=== PATIENT | female | born 1950 | race Two or more races ===

== ENCOUNTER 2025-02-11 11:27 | Inpatient (IN) | payer OTHER ==
[~2025-02-11] VITALS: Ht 154.9 cm; Wt 45.2 kg
--- NOTE | 2025-02-11 11:49 | ED.PDOC ---
HPI Comments 74 y/o F, CHANELLE presents to the ED for CC of possible STEMI. Per EMS, patient is coming from [facility] for possible Stemi due to elevated troponin levels. EMS relays, family reports failure to thrive x5days. Patient's baseline is A&Ox1 no other symptoms or modifying factors obtainable at this time. 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 Family History Family History: Unknown Social History Smoker: Unknown Alcohol: Unknown Drugs: Unknown Lives In: Home Unable to Obtain due to: Medical Urgency Physical Exam General Appearance: Moderate Distress HEENT: Normal ENT Inspection, Pharynx Normal, TMs Normal Neck: Full Range of Motion, Non-Tender, Normal, Normal Inspection Respiratory: Chest Non-Tender, Lungs Clear, No Accessory Muscle Use, No Respiratory Distress, Normal Breath Sounds Cardiovascular: No Edema, No JVD, No Murmur, No Gallop, Normal Peripheral Pulses, Regular Rate/Rhythm Breast Exam: Deferred Gastrointestinal: No Organomegaly, Non Tender, No Pulsatile Mass, Normal Bowel Sounds, Soft Genitalia: Deferred Pelvic: Deferred Rectal: Deferred Extremities: No pedal edema Musculoskeletal : Apperance: Normal Neurologic: Disoriented Cerebellar Function: NOT DONE Reflexes: NOT DONE Skin: Dry, Normal Color, Warm Peripheral Pulses: 3+ Radial (R), 3+ Radial (L) Lymphatic: No Adenopathy Was a procedure done? Was a procedure done?: No CP Differential Dx Differential Diagnosis: A-fib, A-Flutter, Angina, Anxiety / Panic Attack, Atrial Dysrhythmia, Electrolyte Disorder Differential Diagnosis: Other (NSTEMI) Differential Diagnosis: Other X-Ray, Labs, Meds, VS Vital Signs Date Time Temp Pulse Resp B/P (MAP) Pulse Ox O2 Delivery O2 Flow Rate FiO2 02/11/25 11:58 80 02/11/25 11:40 95.3 74 18 154/54 (87) 100 95.3 02/11/25 11:33 78 Lab Test 02/11/25 13:35 02/11/25 13:18 02/11/25 11:53 Range/Units Troponin I High Sensitivity Pending > 51413 *H </=34 ng/L Urine Color Light-orange Yellow Urine Clarity Clear Clear Urine pH 6.0 5.0-9.0 Urine Specific [place] > 1.035 H 1.001-1.035 Urine Protein 2+ H Negative Urine Ketones Negative Negative Urine Blood 3+ H Negative /uL Urine Nitrite Negative Negative Urine Bilirubin Negative Negative Urine Urobilinogen Normal Negative mg/dL Urine Leukocyte Esterase Negative Negative /uL Urine RBC 545 0 - 4 /hpf Urine Microscopic WBC 105 H 0-5 /HPF Urine Squamous Epithelial Cells Few <5 /hpf Urine Bacteria None seen None Seen /hpf Urine Glucose Normal Normal mg/dL White Blood Count 4.0 L 4.4-10.8 10^3/uL Red Blood Count 3.91 L 4.0-5.20 10^6/uL Hemoglobin 10.8 L 12.2-16.2 g/dL Hematocrit 33.1 L 36.0-46.0 % Mean Corpuscular Volume 84.7 80.0-100.0 fL Mean Corpuscular Hemoglobin 27.6 L 28.0-32.0 pg Mean Corpuscular Hemoglobin Concent 32.6 32.0-36.0 g/dL Red Cell Distribution Width 15.5 H 11.8-14.3 % Platelet Count 269 140-450 10^3/uL Mean Platelet Volume 7.9 6.9-10.8 fL Neutrophils (%) (Auto) 74.9 37.0-80.0 % Lymphocytes (%) (Auto) 10.7 10.0-50.0 % Monocytes (%) (Auto) 13.6 H 0.0-12.0 % Eosinophils (%) (Auto) 0.4 0.0-7.0 % Basophils (%) (Auto) 0.4 0.0-2.0 % Neutrophils # (Auto) 3.0 1.6-8.6 10 ^3/uL Lymphocytes # (Auto) 0.4 0.4-5.4 10 ^3/uL Monocytes # (Auto) 0.5 0-1.3 10 ^3/uL Eosinophils # (Auto) 0 0-0.8 10 ^3/uL Basophils # (Auto) 0 0-0.2 10 ^3/uL Nucleated Red Blood Cells 0.1 % Sodium Level 140 136-145 mmol/L Potassium Level 3.5 3.5-5.1 mmol/L Chloride Level 101 98-107 mmol/L Carbon Dioxide Level 33 H 20-31 mmol/L Anion Gap 6 5-15 Blood Urea Nitrogen 18 9-23 mg/dL Creatinine 0.73 0.550-1.02 mg/dL Glomerular Filtration Rate Calc 85 >90 mL/min BUN/Creatinine Ratio 24.7 H 10.0-20.0 Serum Glucose 114 H 74-106 mg/dL Calcium Level 7.9 L 8.7-10.4 mg/dL [place] [id number] Ph: [phone] DIAGNOSTIC IMAGING Diagnostic Imaging Report : [id number] Signed PATIENT: JIM AMES ACCT: [id number] UNIT: [id number] : 1950 LOC: ER ROOM / BED: / AGE / SEX: 74 / F ADM STATUS: REG ER SERVICE 1138 ORDERING PHYSICIAN: CHARISMA JARAMILLO MD PROCEDURE(s): CXRP - CHEST PORTABLE REASON: sob ORDER NUMBER(s): [id number], ACCESSION NUMBER(s): [id number] CHEST RADIOGRAPH Indication: sob Technique: Single frontal view of the chest was obtained COMPARISON: None FINDINGS: Lines and Tubes: None Lungs: Congestion Pleura: Moderate right pleural effusion No pneumothorax. Cardiomediastinal contours: Unremarkable Bones: Unremarkable IMPRESSION: Moderate right pleural effusion. ATED BY: ELVIN RUSSELL MD DICTATED DATE/TIME: 02/11/251200 SIGNED BY: ELVIN RUSSELL MD SIGNED DATE/TIME: 02/11/251200 CC: Patient disoriented. Came in from another hospital because elevated troponin. Unable to get a good history from the patient. Spoke with the physician from [facility]. Spoke with hospitalist. She did have a increase in troponin. Spoke to the family. Family did not want any intervention. Was given heparin in the field. Was given Lovenox in the ER. EKG does not show any acute changes. Spoke with director religious education. Reviewed her visit. Explained to the family. Continue cardiac monitoring. Time of 1ST Reevaluation: 12:00 Reevaluation 1ST: Unchanged Patient Education/Counseling: Diagnosis, Treatment Family Education/Counseling: No Family Present Departure 1 Departure Time of Disposition: 13:20 Impression: Primary Impression: NSTEMI (non-ST elevated myocardial infarction) Disposition: ADMITTED INPATIENT Admit to: Med Surg Condition: Guarded Critical Care Note Critical Care Time?: Yes (90 min-critical care time only) Critical care comment: Cardiac markers continues to be elevated. Stability Stability form required: No Heart Score Heart Score: Heart Score Response (Comments) Value History Moderate Suspicious 1 EKG N/A 0 Age >65 2 Risk Factors 1 or 2 risk factors 1 Troponin >3 x's Normal limit 2 Total 6 I personally scribed for CHARISMA JARAMILLO MD ([email or web address]) on 02/11/25 at 11:49. Electronically submitted by Urvashi Jaffe ([email or web address]). I personally scribed for CHARISMA JARAMILLO MD ([email or web address]) on 02/11/25 at 11:51. Electronically submitted by Urvashi Jaffe ([email or web address]). I personally scribed for CHARISMA JARAMILLO MD ([email or web address]) on 02/11/25 at 12:00. Electronically submitted by Urvashi Jaffe ([email or web address]). I personally scribed for CHARISMA JARAMILLO MD ([email or web address]) on 02/11/25 at 13:58. Electronically submitted by Urvashi Jaffe ([email or web address]). CHARISMA JARAMILLO MD Feb 11, 2025 11:49
[2025-02-11] MEDS: ANGIOMAX 250 MG VIAL IV ONE (11:54)
[2025-02-11] MEDS: fentaNYL CITRATE 100 MCG/2 ML VL ONE (11:55)
[2025-02-11] MEDS: SODIUM CHL 0.9% 50 ML ONE (11:55)
[2025-02-11] MEDS: MIDAZOLAM HCL 2MG/2ML 2ml VIAL (1mg/ml) ONE (11:55)
[2025-02-11] MEDS: LIDOCAINE 2%HCL (LOCAL ANESTH.) INJ 20ML MDV ONE (11:55)
--- NOTE | 2025-02-11 12:04 | DVH ---
CHEST RADIOGRAPH Indication: sob Technique: Single frontal view of the chest was obtained COMPARISON: None FINDINGS: Lines and Tubes: None Lungs: Congestion Pleura: Moderate right pleural effusion No pneumothorax. Cardiomediastinal contours: Unremarkable Bones: Unremarkable IMPRESSION: Moderate right pleural effusion.
[2025-02-11] MEDS: SODIUM CHLORIDE 0.9% 1,000 ML IV ONE (12:15)
[2025-02-11 12:16] LABS: Basophils # (auto) 0 10 ^3/uL (0-0.2); Basophils % (auto) 0.4 % (0.0-2.0); Eosinophils # (auto) 0 10 ^3/uL (0-0.8); Eosinophils % (auto) 0.4 % (0.0-7.0); Hematocrit 33.1 % (36.0-46.0); Hemoglobin 10.8 g/dL (12.2-16.2); Lymphocytes # (auto) 0.4 10 ^3/uL (0.4-5.4); Lymphocytes % (auto) 10.7 % (10.0-50.0); Mean Corpuscular Hemoglobin 27.6 pg (28.0-32.0); Mean Corpuscular Hgb Conc. 32.6 g/dL (32.0-36.0); Mean Corpuscular Volume 84.7 fL (80.0-100.0); Monocytes # (auto) 0.5 10 ^3/uL (0-1.3); Monocytes % (auto) 13.6 % (0.0-12.0); Neutrophils % (auto) 74.9 % (37.0-80.0); Nucleated Red Blood Cells % 0.1 %; Platelet Count (auto) 269 10^3/uL (140-450); Red Blood Cells 3.91 10^6/uL (4.0-5.20); Red Cell Distribution Width 15.5 % (11.8-14.3)
[2025-02-11 12:21] LABS: Anion Gap 6 (5-15); Chloride 101 mmol/L (98-107); Sodium 140 mmol/L (136-145)
[2025-02-11 12:27] LABS: BUN/Creatinine Ratio 24.7 (10.0-20.0); Blood Urea Nitrogen 18 mg/dL (9-23)
[2025-02-11 12:33] LABS: Calcium 7.9 mg/dL (8.7-10.4); Carbon Dioxide 33 mmol/L (20-31); Glucose 114 mg/dL (74-106); Potassium 3.5 mmol/L (3.5-5.1)
[2025-02-11 13:00] VITALS: PULSE 67; RESP 22; O2SAT 100
[2025-02-11 13:19] LABS: Urine Bacteria None Seen /hpf (None Seen)
[2025-02-11 13:42] LABS: Urine Blood 3+ /uL (Negative); Urine Clarity Clear (Clear); Urine Color Light-Orange (Yellow); Urine Protein, UAD 2+ (Negative); Urine Squamous Epithelial Cell FEW /hpf (<5); Urine Urobilinogen Normal (Negative); Urine WBC 105 /HPF (0-5)
[2025-02-11 13:46] LABS: Urine Specific Gravity > 1.035 (1.001-1.035)
--- NOTE | 2025-02-11 15:03 | DVHINCON2 ---
Date Seen: Feb 11, 2025 Referring Physician MD Junior Reason for Consultation NSTEMI History of Present Illness This is a 74-year-old female transient for [facility] to our facility in the setting of trending troponin levels. At time of assessment the patient was found somewhat ALOC with son at bedside. Per records, the patient initially presented with complaints of some confusion associated with decreased appetite. Per son and daughter over the phone, the patient has lost approximately 20 lb, has lost some teeth, and has being found with some depression during the past couple of months. There were no complaints of chest pain, palpitations, shortness of breath, diaphoresis, or syncopal events. Twelve lead electrocardiograms from the aforementioned facility in our facility half revealed a sinus rhythm with nonspecific ST segment changes to inferolateral leads. Initial troponin level is >25,000 ng/L. Son and daughter are adamant about the patient undergoing any invasive cardiac procedures including PCIs. Of note, CT chest/abdomen/pelvis from [facility] revealed numerous sclerotic lesions in the osseous structures of the chest/abdomen/pelvis consistent with metastatic disease, cardiomegaly with moderate pericardial effusion, and possible malted lymphadenopathy. Significant medical history includes hypertension, dyslipidemia, anemia, and recent history of tobacco use quit two months ago. Past Medical History Past medical history reviewed. No other significant than mentioned above. Past Surgical History Past surgical history reviewed. No other significant than mentioned above. Family History Family history reviewed. Social History Denies the use of illicit drugs, alcohol, or tobacco use. Quit smoking two months ago. Allergies: Coded Allergies: Aspirin (Verified Allergy, Unknown, 02/11/25) Penicillins (Verified Allergy, Unknown, 02/11/25) Home Meds Home medications reviewed. Review of Systems Constitutional: Poor appetite Ears, Nose, & Throat: No symptom reported Eyes: No symptom reported Neurological: ALOC Pulmonary/Respiratory: No symptom reported Cardiovascular: No symptom reported Gastrointestinal: No symptom reported Genitourinary: No symptom reported Musculoskeletal: No symptom reported Skin: No symptom reported Psychiatric: No symptom reported Endocrine: No symptom reported Hemotologic/Lymphatic: No symptom reported Vital Signs Vital Signs Date Time Temp Pulse Resp B/P (MAP) Pulse Ox O2 Delivery O2 Flow Rate FiO2 02/11/25 12:00 71 02/11/25 11:40 95.3 18 154/54 (87) 100 95.3 Physical Exam General Appearance: ALOC. Cachectic. Appears ill Head Exam: Normal inspection Neck Exam: Normal inspection. Non-tender. Normal alignment Pulmonary/Respiratory: Chest non-tender. Diminished bilateral breath sounds Cardiovascular/Chest: Regular rate and rhythm. S1, S2. Sinus rhythm with nonspecific inferolateral ST changes. No murmurs. No JVD. Peripheral Pulses: 2+ Radial (R). 2+ Radial (L). 2+ Pedal (R). 2+ Pedal (L) Abdominal Exam: Normal bowel sounds Ankle Exam: Positive ankle pitting edema, 2+ Lower extremities: Negative lower extremity edema Neuro/Mental Status: A&O x1. Incoherent, confused Thoughts/Psych: Unable to assess at this time Appearance: In no acute distress Skin Exam: Normal inspection. Pale color. Warm. Dry Labs/Diagnostic Data Labs Test 02/11/25 13:35 02/11/25 13:18 02/11/25 11:53 Range/Units Troponin I High Sensitivity > 63216 *H </=34 ng/L Urine Color Light-orange Yellow Urine Clarity Clear Clear Urine pH 6.0 5.0-9.0 Urine Specific [place] > 1.035 H 1.001-1.035 Urine Protein 2+ H Negative Urine Ketones Negative Negative Urine Blood 3+ H Negative /uL Urine Nitrite Negative Negative Urine Bilirubin Negative Negative Urine Urobilinogen Normal Negative mg/dL Urine Leukocyte Esterase Negative Negative /uL Urine RBC 545 0 - 4 /hpf Urine Microscopic WBC 105 H 0-5 /HPF Urine Squamous Epithelial Cells Few <5 /hpf Urine Bacteria None seen None Seen /hpf Urine Glucose Normal Normal mg/dL White Blood Count 4.0 L 4.4-10.8 10^3/uL Red Blood Count 3.91 L 4.0-5.20 10^6/uL Hemoglobin 10.8 L 12.2-16.2 g/dL Hematocrit 33.1 L 36.0-46.0 % Mean Corpuscular Volume 84.7 80.0-100.0 fL Mean Corpuscular Hemoglobin 27.6 L 28.0-32.0 pg Mean Corpuscular Hemoglobin Concent 32.6 32.0-36.0 g/dL Red Cell Distribution Width 15.5 H 11.8-14.3 % Platelet Count 269 140-450 10^3/uL Mean Platelet Volume 7.9 6.9-10.8 fL Neutrophils (%) (Auto) 74.9 37.0-80.0 % Lymphocytes (%) (Auto) 10.7 10.0-50.0 % Monocytes (%) (Auto) 13.6 H 0.0-12.0 % Eosinophils (%) (Auto) 0.4 0.0-7.0 % Basophils (%) (Auto) 0.4 0.0-2.0 % Neutrophils # (Auto) 3.0 1.6-8.6 10 ^3/uL Lymphocytes # (Auto) 0.4 0.4-5.4 10 ^3/uL Monocytes # (Auto) 0.5 0-1.3 10 ^3/uL Eosinophils # (Auto) 0 0-0.8 10 ^3/uL Basophils # (Auto) 0 0-0.2 10 ^3/uL Nucleated Red Blood Cells 0.1 % Sodium Level 140 136-145 mmol/L Potassium Level 3.5 3.5-5.1 mmol/L Chloride Level 101 98-107 mmol/L Carbon Dioxide Level 33 H 20-31 mmol/L Anion Gap 6 5-15 Blood Urea Nitrogen 18 9-23 mg/dL Creatinine 0.73 0.550-1.02 mg/dL Glomerular Filtration Rate Calc 85 >90 mL/min BUN/Creatinine Ratio 24.7 H 10.0-20.0 Serum Glucose 114 H 74-106 mg/dL Calcium Level 7.9 L 8.7-10.4 mg/dL Assessment Non ST-elevation myocardial infarction Osseous metastatic disease, ?primary source Recent weight loss >20 lb in two months Anemia in chronic disease Hypertension Cachexia Plan/Recommendation (Dr. Pierce) Conversation held with son and eldest daughter/next of kin (Ana Laura Rutledge) over the phone. They are adamant the patient undergoing any invasive cardiac procedu res at this time. Given findings of metastatic osseous disease we recommend conservative management and further work-up to establish primary source of malignancy. We recommend hospice care evaluation. No further recommendations at this time. Kindly call if in need to re-consult. Thank you for allowing us to participate in this patient's care. Critical care time: 45 min. This medical document was created using an electronic medical record system with voice recognition software and [employer] dictation system. Although this document has been carefully reviewed, there might still be some phonetic and typographical errors. Occasional wrong- word or ``sound-alike substitutions may have occurred due to the inherent limitations of voice recognition software. These areas are purely typographical due to imperfections of the software programs and do not reflect any compromise in the patient's medical care. Please read the chart carefully and recognize, using context, where these substitutions have occurred. Plan discussed with: Patient, Daughter, Son, Other NYHA Physical activity limitations: NA Date of Service: Feb 11, 2025 Billing Provider: RYAN DE ANDA Cardiology Common Codes: 84171-LVYAIVEM CARE 30-74 MIN RYAN DE ANDA Feb 11, 2025 15:03
[2025-02-11] MEDS ORDERED: MORPHINE SULFATE INJ 2 MG/ml SYRG IV PRN (15:30)
[2025-02-11] MEDS ORDERED: NITROGLYCERIN 0.4 MG SL TAB SL PRN (15:30)
--- NOTE | 2025-02-11 15:43 | DVHHP2 ---
History of Present Illness Reason for Visit: Elevated troponin History of Present Illness This is a 74-year-old female transferred from [facility] to our facility in the setting of elevated troponin levels for nonemergent cardiac evaluation and possible coronary angiogram. At time of assessment the patient was found somewhat ALOC with son at bedside. Per records, the patient initially presented with complaints of some confusion associated with decreased appetite. Per son and daughter over the phone, the patient has lost approximately 20 lb, has lost some teeth, and has being found with some depression during the past couple of months. There were no complaints of chest pain, palpitations, shortness of breath, diaphoresis, or syncopal events. Twelve lead electrocardiograms from the aforementioned facility in our facility half revealed a sinus rhythm with nonspecific ST segment changes to inferolateral leads. Initial troponin level is >25,000 ng/L. However after she came here she was evaluated by technical support technician and talked to DPOA her Son and daughter who dec lined patient undergoing any invasive cardiac procedures including PCIs. They wanted to keep her comfortable and treated with the medications if possible even if this causes further cardiac arrhythmia and sudden due to acute FL without any interventions. Therefore they have made her DNR with comfort care. Of note, CT chest/abdomen/pelvis from [facility] revealed numerous sclerotic lesions in the osseous structures of the chest/abdomen/pelvis consistent with metastatic disease, cardiomegaly with moderate pericardial effusion, and possible malted lymphadenopathy. Significant medical history includes hypertension, dyslipidemia, anemia, and recent history of tobacco use quit two months ago. Past Medical History hypertension, dyslipidemia, anemia, Past Surgical History: None Family History: Hypertension Smoke: Quit ALCOHOL: none Lives: with Family Review of Systems Review of Systems No complaints of chest pain or shortness for breath. Apparently home health is visiting the patient at home. No fevers chills or sweats. No headache dizziness or lightheadedness. Generalized weakness noted. Allergies: Coded Allergies: Aspirin (Verified Allergy, Unknown, 02/11/25) Penicillins (Verified Allergy, Unknown, 02/11/25) Medications Current Medications Medications Dose Ordered Sig/Cindi Route Start Time Stop Time Status Last Admin Dose Admin Nitroglycerin 0.4 mg Q5MINP PRN SL 02/11/25 15:30 UNV Morphine Sulfate 2 mg Q30M PRN IV 02/11/25 15:30 UNV Exam Vital Signs Vital Signs Date Time Temp Pulse Resp B/P (MAP) Pulse Ox O2 Delivery O2 Flow Rate FiO2 02/11/25 12:00 71 02/11/25 11:40 95.3 18 154/54 (87) 100 95.3 Exam She was alert and awake knows her name but otherwise confused and unable to give much reliable history. Her son is at bedside. Her daughter is on the phone talking to patient/brother who is at bedside. HEENT pupils equal round react to light. Oropharynx clear. Neck supple no JVD. Heart regular rate and rhythm sinus tachycardia S1 plus S2. No audible murmurs. Lungs fair air movement with a degraded breath sounds in the bases. No wheezing noted. Chest tube will expansion. Abdomen is soft nontender nondistended positive bowel sounds nondistended. Extremities no edema positive pulses. Neurologically no focal deficits except for altered mentation. Labs/Xrays Labs Test 02/11/25 13:35 02/11/25 13:18 02/11/25 11:53 Range/Units Troponin I High Sensitivity > 10276 *H </=34 ng/L Urine Color Light-orange Yellow Urine Clarity Clear Clear Urine pH 6.0 5.0-9.0 Urine Specific [place] > 1.035 H 1.001-1.035 Urine Protein 2+ H Negative Urine Ketones Negative Negative Urine Blood 3+ H Negative /uL Urine Nitrite Negative Negative Urine Bilirubin Negative Negative Urine Urobilinogen Normal Negative mg/dL Urine Leukocyte Esterase Negative Negative /uL Urine RBC 545 0 - 4 /hpf Urine Microscopic WBC 105 H 0-5 /HPF Urine Squamous Epithelial Cells Few <5 /hpf Urine Bacteria None seen None Seen /hpf Urine Glucose Normal Normal mg/dL White Blood Count 4.0 L 4.4-10.8 10^3/uL Red Blood Count 3.91 L 4.0-5.20 10^6/uL Hemoglobin 10.8 L 12.2-16.2 g/dL Hematocrit 33.1 L 36.0-46.0 % Mean Corpuscular Volume 84.7 80.0-100.0 fL Mean Corpuscular Hemoglobin 27.6 L 28.0-32.0 pg Mean Corpuscular Hemoglobin Concent 32.6 32.0-36.0 g/dL Red Cell Distribution Width 15.5 H 11.8-14.3 % Platelet Count 269 140-450 10^3/uL Mean Platelet Volume 7.9 6.9-10.8 fL Neutrophils (%) (Auto) 74.9 37.0-80.0 % Lymphocytes (%) (Auto) 10.7 10.0-50.0 % Monocytes (%) (Auto) 13.6 H 0.0-12.0 % Eosinophils (%) (Auto) 0.4 0.0-7.0 % Basophils (%) (Auto) 0.4 0.0-2.0 % Neutrophils # (Auto) 3.0 1.6-8.6 10 ^3/uL Lymphocytes # (Auto) 0.4 0.4-5.4 10 ^3/uL Monocytes # (Auto) 0.5 0-1.3 10 ^3/uL Eosinophils # (Auto) 0 0-0.8 10 ^3/uL Basophils # (Auto) 0 0-0.2 10 ^3/uL Nucleated Red Blood Cells 0.1 % Sodium Level 140 136-145 mmol/L Potassium Level 3.5 3.5-5.1 mmol/L Chloride Level 101 98-107 mmol/L Carbon Dioxide Level 33 H 20-31 mmol/L Anion Gap 6 5-15 Blood Urea Nitrogen 18 9-23 mg/dL Creatinine 0.73 0.550-1.02 mg/dL Glomerular Filtration Rate Calc 85 >90 mL/min BUN/Creatinine Ratio 24.7 H 10.0-20.0 Serum Glucose 114 H 74-106 mg/dL Calcium Level 7.9 L 8.7-10.4 mg/dL Assessment/Plan Assessment/Plan Acute non ST elevation FL Metabolic encephalopathy Hypertension Pleural effusions CT of the abdomen and pelvis done at [facility] shows Sclerotic multiple lesions in her pelvis and spine suspicious for underlying metastatic cancer Given the patient's DPOA/daughter and son declined any aggressive interventions we will admit her to telemetry floor with a medical management. I have talked to the daughter over the phone along with the son at bedside at length regarding her condition and diagnosis and poor prognosis with the risk of cardiac arrhythmia and sudden cardiac given her non ST elevation FL. Apparently patient did not want any aggressive interventions including coronary angiogram even if it means sudden cardiac . Patient's daughter per patient's request wants to keep her comfortable with non aggressive medical management. Also discussed with her about CT of the abdomen and pelvis findings of possible metastatic cancer. Given patient's weight loss with a history of smoking it is felt this could be stage IV cancer and would require bone biopsy to further confirm the diagnosis. However daughter again declined any aggressive interventions including does not want any biopsy to confirm the cancer diagnosis. Given the patient's wishes as well as DPA daughter's wishes we will keep her comfortable and start her on clear liquid diet and medical management with antiplatelet therapy and statin. Lovenox for non ST elevation FL treatme nt. Morphine for pain and Zofran for nausea. Otherwise we will make her DNR given their wishes. I will have social Service consultation for hospice evaluation. I have discussed comfort care with the hospice as well with a daughter and the son and they verbalized understanding of her condition and goals of hospice care and are interested in talking to hospice services. Also discussed with the nurse regarding care plan at bedside. Overall prognosis remains very poor with a guarded condition. Family is fully aware of this and agree with the current care plan as outlined. Plan discussed with: Daughter, Son My Orders Orders - JORGE RODRÍGUEZ MD Procedure Category Date Status Time Admit ADMIT 02/11/25 Transmitted 15:24 Clear Liq Diet DIET 02/11/25 Transmitted Dinner Troponin-I Hs LAB 02/11/25 Logged 15:24 Refer To Hospice [facility] 02/11/25 In Process 15:24 * [place] CONS 02/11/25 Transmitted Consult Nitroglycerin PHA 02/11/25 Logged Sublingual (Ntrostat 15:30 Morphine Sulfate PHA 02/11/25 Logged Injection 15:30 Stat Ekg For Chest [facility] 02/11/25 In Process Pain 15:24 Notify Of Changes [facility] 02/11/25 In Process From Base 15:24 Metal Engineering Process Worker For [facility] 02/11/25 In Process 24 Hours 15:24 Emergency Dysrhythmia [facility] 02/11/25 In Process Protocol 15:24 Rhythm Strips Once [facility] 02/11/25 In Process Every Shift 15:24 Oxygen By Nasal RT 02/11/25 Transmitted Cannula 15:24 Troponin-I Hs LAB 02/11/25 Logged 18:24 * Swallow Request ST 02/11/25 Transmitted 15:24 Speech Pathologist [facility] 02/11/25 In Process Ale: Iwona 15:24 Troponin-I Hs LAB 02/12/25 Verified 04:00 Complete Blood Count LAB 02/12/25 Verified 04:00 Comprehensive LAB 02/12/25 Verified Metabolic Panel 04:00 PTPTT LAB 02/12/25 Verified 04:00 Atorvastatin (Lipitor) PHA 02/11/25 Logged 22:00 Enoxaparin Sodium PHA 02/11/25 Logged (Lovenox) 22:00 Morphine Sulfate PHA 02/11/25 Transmitted Injection 15:30 Famotidine Injection PHA 02/12/25 Transmitted (Pepcid Injection) 10:00 Clopidogrel Bisulfate PHA 02/12/25 Transmitted (Plavix) 10:00 Code Status CODE 02/11/25 Transmitted 15:27 Electrocardigram EKG 02/12/25 Logged 04:00 DNR ANNALISE 02/11/25 In Process 15:27 Metoprolol Tartrate PHA 02/11/25 Transmitted Tablet (Lopressor Ta 22:00 JORGE RODRÍGUEZ MD Feb 11, 2025 15:43
[2025-02-11] MEDS: SULFAMETH-TRIMETH 80/16MG-ML 10 ML in D5W 5% 250 ML IV ONE (15:45)
[2025-02-11] MEDS: ENOXAPARIN SOD 40 MG/0.4 ML SYRINGE SC ONE (17:33)
--- NOTE | 2025-02-11 18:34 | ECG ---
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
[2025-02-11 20:00] VITALS: PULSE 71
[2025-02-11 21:00] VITALS: BP 100/36; PULSE 77; RESP 20; TEMP 97.6; O2SAT 96
[2025-02-11] MEDS: ATORVASTATIN 20 MG TAB PO SCH (21:04)
[2025-02-11] MEDS: METOPROLOL TARTRATE 25 MG TAB PO SCH (21:04)
[2025-02-11] MEDS: ENOXAPARIN SOD 100 MG/1 ML SYRINGE SC SCH (21:44)
[2025-02-11] MEDS: D5W/SOD CHL 0.45% 1,000 ML IV SCH (22:24)
--- NOTE | 2025-02-11 23:49 | DVHINCON2 ---
Date Seen: Feb 11, 2025 Referring Physician MD Junior Reason for Consultation NSTEMI History of Present Illness This is a 74-year-old female with a PMH of hypertension, dyslipidemia, anemia, and recent history of tobacco use quit two months ago who was transferred to [facility] from [facility] due to high trending troponin levels. At time of assessment the patient was found somewhat ALOC with her son present at bedside. Per medical records, the patient initially presented with complaints of some confusion associated with decreased appetite. Per son and daughter over the phone, the patient has lost approximately 20 lb, has lost some teeth, and has being found with some depression during the past couple of months. There were no complaints of chest pain, palpitations, shortness of breath, diaphoresis, or syncopal events. Twelve lead electrocardiograms from the aforementioned facility in our facility half revealed a sinus rhythm with nonspecific ST segment changes to inferolateral leads. Initial troponin level is >25,000 ng/L. Son and daughter are adamant about the patient not undergoing any invasive cardiac procedures including PCIs. CT chest/abdomen/pelvis from [facility] revealed numerous sclerotic lesions in the osseous structures of the chest/abdomen/pelvis consistent with metastatic disease, cardiomegaly with moderate pericardial effusion, and possible malted lymphadenopathy. Past Medical History Past medical history reviewed. No other significant than mentioned above. Past Surgical History Past surgical history reviewed. No other significant than mentioned above. Allergies: Coded Allergies: Aspirin (Verified Allergy, Unknown, 02/11/25) Penicillins (Verified Allergy, Unknown, 02/11/25) Current Medications Current Medications Medications (Trade) Dose Ordered Sig/Cindi Route PRN Reason Start Time Stop Time Status Last Admin Nitroglycerin (Ntrostat Sublingual) 0.4 mg Q5MINP PRN SL FOR CHEST PAIN 02/11/25 15:30 Morphine Sulfate 2 mg Q30M PRN IV FOR CHEST PAIN 02/11/25 15:30 Atorvastatin Calcium (Lipitor) 20 mg HS PO 02/11/25 22:00 Enoxaparin Sodium (Lovenox) 40 mg Q12HR SC 02/11/25 22:00 Morphine Sulfate 2 mg Q4HPRN PRN IV SEVERE PAIN (7-10 PAIN SCALE) 02/11/25 15:30 Famotidine (Pepcid Injection) 20 mg DAILY IV 02/12/25 10:00 Clopidogrel Bisulfate (Plavix) 75 mg DAILY PO 02/12/25 10:00 Metoprolol Tartrate (Lopressor Tablet) 12.5 mg BID PO 02/11/25 22:00 Review of Systems Constitutional: Poor appetite Ears, Nose, & Throat: No symptom reported Eyes: No symptom reported Neurological: ALOC Pulmonary/Respiratory: No symptom reported Cardiovascular: No symptom reported Gastrointestinal: No symptom reported Genitourinary: No symptom reported Musculoskeletal: No symptom reported Skin: No symptom reported Psychiatric: No symptom reported Endocrine: No symptom reported Hemotologic/Lymphatic: No symptom reported Vital Signs Vital Signs Date Time Temp Pulse Resp B/P (MAP) Pulse Ox O2 Delivery O2 Flow Rate FiO2 02/11/25 19:00 73 20 113/56 (75) 100 02/11/25 16:00 97.5 97.5 02/11/25 13:00 Nasal Cannula* 4 36 Physical Exam GENERAL: Altered, cachectic, ill appearing. LUNGS: Clear. CARDIOVASCULAR: Heart sounds are good. ABDOMEN: Soft. EXT: +2 pitting edema. Labs/Diagnostic Data Labs Test 02/11/25 18:06 02/11/25 13:18 02/11/25 11:53 Range/Units Troponin I High Sensitivity > 77478 *H </=34 ng/L Urine Color Light-orange Yellow Urine Clarity Clear Clear Urine pH 6.0 5.0-9.0 Urine Specific [place] > 1.035 H 1.001-1.035 Urine Protein 2+ H Negative Urine Ketones Negative Negative Urine Blood 3+ H Negative /uL Urine Nitrite Negative Negative Urine Bilirubin Negative Negative Urine Urobilinogen Normal Negative mg/dL Urine Leukocyte Esterase Negative Negative /uL Urine RBC 545 0 - 4 /hpf Urine Microscopic WBC 105 H 0-5 /HPF Urine Squamous Epithelial Cells Few <5 /hpf Urine Bacteria None seen None Seen /hpf Urine Glucose Normal Normal mg/dL White Blood Count 4.0 L 4.4-10.8 10^3/uL Red Blood Count 3.91 L 4.0-5.20 10^6/uL Hemoglobin 10.8 L 12.2-16.2 g/dL Hematocrit 33.1 L 36.0-46.0 % Mean Corpuscular Volume 84.7 80.0-100.0 fL Mean Corpuscular Hemoglobin 27.6 L 28.0-32.0 pg Mean Corpuscular Hemoglobin Concent 32.6 32.0-36.0 g/dL Red Cell Distribution Width 15.5 H 11.8-14.3 % Platelet Count 269 140-450 10^3/uL Mean Platelet Volume 7.9 6.9-10.8 fL Neutrophils (%) (Auto) 74.9 37.0-80.0 % Lymphocytes (%) (Auto) 10.7 10.0-50.0 % Monocytes (%) (Auto) 13.6 H 0.0-12.0 % Eosinophils (%) (Auto) 0.4 0.0-7.0 % Basophils (%) (Auto) 0.4 0.0-2.0 % Neutrophils # (Auto) 3.0 1.6-8.6 10 ^3/uL Lymphocytes # (Auto) 0.4 0.4-5.4 10 ^3/uL Monocytes # (Auto) 0.5 0-1.3 10 ^3/uL Eosinophils # (Auto) 0 0-0.8 10 ^3/uL Basophils # (Auto) 0 0-0.2 10 ^3/uL Nucleated Red Blood Cells 0.1 % Sodium Level 140 136-145 mmol/L Potassium Level 3.5 3.5-5.1 mmol/L Chloride Level 101 98-107 mmol/L Carbon Dioxide Level 33 H 20-31 mmol/L Anion Gap 6 5-15 Blood Urea Nitrogen 18 9-23 mg/dL Creatinine 0.73 0.550-1.02 mg/dL Glomerular Filtration Rate Calc 85 >90 mL/min BUN/Creatinine Ratio 24.7 H 10.0-20.0 Serum Glucose 114 H 74-106 mg/dL Calcium Level 7.9 L 8.7-10.4 mg/dL Assessment Non ST-elevation myocardial infarction. Osseous metastatic disease, ?primary source. Recent weight loss >20 lb in two months. Anemia in chronic disease. Hypertension. Cachexia. Plan/Recommendation I agree with your ongoing assessment and care of plan. Patient has been seen by Jelena Esteves NP on my behalf, her and I discussed the plan with the patient. Conversation held with son and eldest daughter/next of kin (Ana Laura Rutledge) over the phone. They are adamant the patient undergoing any invasive cardiac procedures at this time. Given findings of metastatic osseous disease we recommend conservative management and further work-up to establish primary source of malignancy. We recommend hospice care evaluation. Additional plan as per the hospital course. Plan discussed with: Other NYHA Physical activity limitations: NA Date of Service: Feb 11, 2025 Billing Provider: LEYDA GAONA MD Cardiology Common Codes: 01451-[id number] INP/OBS CARE (High), 25971-[id number] CARE 30-74 MIN LEYDA GAONA MD Feb 11, 2025 21:03
--- NOTE | 2025-02-12 07:24 | ECG ---
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
[2025-02-12 07:25] LABS: Basophils # (auto) 0 10 ^3/uL (0-0.2); Basophils % (auto) 0.5 % (0.0-2.0); Eosinophils # (auto) 0 10 ^3/uL (0-0.8); Eosinophils % (auto) 0.5 % (0.0-7.0); Hematocrit 32.8 % (36.0-46.0); Hemoglobin 10.9 g/dL (12.2-16.2); Lymphocytes # (auto) 0.5 10 ^3/uL (0.4-5.4); Lymphocytes % (auto) 14.3 % (10.0-50.0); Mean Corpuscular Hgb Conc. 33.3 g/dL (32.0-36.0); Mean Corpuscular Volume 84.1 fL (80.0-100.0); Monocytes # (auto) 0.4 10 ^3/uL (0-1.3); Monocytes % (auto) 12.6 % (0.0-12.0); Neutrophils # (auto) 2.5 10 ^3/uL (1.6-8.6); Neutrophils % (auto) 72.1 % (37.0-80.0); Platelet Count (auto) 279 10^3/uL (140-450); Red Cell Distribution Width 15.8 % (11.8-14.3); White Blood Cell 3.5 10^3/uL (4.4-10.8)
[2025-02-12 07:39] LABS: INR 1.08 (0.9-1.15); Partial Thromboplastin Time 36.4 SEC (24.5-34.5); Prothrombin Time 11.4 sec (9.3-11.8)
[2025-02-12 07:50] LABS: Alanine Aminotransferase 20 U/L (7-40); Alkaline Phosphatase 109 U/L (46-116); Anion Gap 6 (5-15); BUN/Creatinine Ratio 24.1 (10.0-20.0); Bilirubin, Total 0.5 mg/dL (0.2-1.0); Blood Urea Nitrogen 20 mg/dL (9-23); Chloride 101 mmol/L (98-107); Potassium 3.6 mmol/L (3.5-5.1); Sodium 140 mmol/L (136-145)
[2025-02-12 07:54] LABS: Aspartate Aminotransferase 189 U/L (13-40); Calcium 8.4 mg/dL (8.7-10.4); Carbon Dioxide 33 mmol/L (20-31); Glucose 116 mg/dL (74-106); Total Protein 5.7 g/dL (5.7-8.2)
[2025-02-12 08:00] VITALS: PULSE 68; PULSE 70; RESP 20; O2SAT 100
[2025-02-12 09:00] VITALS: BP 139/58; PULSE 70; RESP 23; TEMP 97.6; O2SAT 100
[2025-02-12] MEDS: FAMOTIDINE (10MG/ML) 2ML VL IV SCH (09:23)
[2025-02-12] MEDS: CLOPIDOGREL BISULFATE 75 MG TAB PO SCH (09:24)
--- NOTE | 2025-02-12 12:50 | ECG ---
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
[2025-02-12] MEDS ORDERED: LEVO250T58 PO (12:55)
[2025-02-12] MEDS ORDERED: METO25TA5 PO (12:55)
[2025-02-12] MEDS ORDERED: ATOR20TA50 PO (12:55)
[2025-02-12] MEDS ORDERED: ASPI-543 PO (12:55)
[2025-02-12 13:00] VITALS: BP 153/46; PULSE 72; RESP 21; TEMP 97.5; O2SAT 99
--- NOTE | 2025-02-12 13:18 | DVHPN2 ---
Progress Note - Dictate Date Seen: Feb 12, 2025 Medical Necessity Reason Pt with a Central, PICC or Fol: No Subjective Patient clinically stable. No complaints of chest pain but does have some shortness for breath on oxygen. Son and patient's nurse is at bedside vital signs Vital Sign Date Time Temp Pulse Resp B/P (MAP) Pulse Ox O2 Delivery O2 Flow Rate FiO2 02/12/25 10:24 73 155/42 02/12/25 09:00 97.6 23 100 97.6 02/12/25 08:00 Nasal Cannula* 4 36 Total Intake and Output 02/11/25 02/11/25 02/12/25 15:00 23:00 07:00 Intake Total 0 ml Output Total 130 ml Balance -130 ml medications Current Medications Medications Dose Ordered Sig/Cindi Route Start Time Stop Time Status Last Admin Dose Admin Nitroglycerin 0.4 mg Q5MINP PRN SL 02/11/25 15:30 Morphine Sulfate 2 mg Q30M PRN IV 02/11/25 15:30 Atorvastatin Calcium 20 mg HS PO 02/11/25 22:00 Enoxaparin Sodium 40 mg Q12HR SC 02/11/25 22:00 02/11/25 21:44 40 MG Morphine Sulfate 2 mg Q4HPRN PRN IV 02/11/25 15:30 Clopidogrel Bisulfate 75 mg DAILY PO 02/12/25 10:00 02/12/25 09:24 75 MG Metoprolol Tartrate 12.5 mg BID PO 02/11/25 22:00 02/12/25 09:24 12.5 MG objective HEENT neck supple no JVD. Elderly frail female. Heart regular rate and rhythm S1-S2. Lungs fair air movement degraded breath sounds in the bases. Abdomen soft positive bowel sounds. Extremities no edema laboratory and microbiology Laboratory Tests 02/12/25 07:02 Test 02/12/25 07:02 Range/Units Serum Glucose 116 H 74-106 mg/dL Assessment/Plan Chronic pleural effusion Sclerotic lesions in the spine/bone suspicious for metastatic disease I have talked to patient's son as well as her daughter who is the DPOA over the phone video conference at bedside. I have once again reiterated her severity of myocardial infarction with a pleural effusion and sclerotic lesions in the bones. Even today they do not want to pursue any aggressive care interventions or procedures. They want her to be medically treated. However at present they have yet to decide regarding home hospice care. I believe patient is appropriate for hospice given as she is not wanting to have any aggressive care and treatments. I have once again told them that she is at risk for sudden cardiac arrhythmia and sudden due to her MS with respiratory problems as well as underlying possible diagnosis of cancer. They have verbalized understanding of these, seriousness of her acute condition and wants to think it over today then let us know regarding home hospice. Meantime continue present management. Discussed with the nurse also at bedside regarding care plan. Problems(with codes): (1) NSTEMI (non-ST elevated myocardial infarction) Plan discussed with: Daughter, Son, Other JORGE RODRÍGUEZ MD Feb 12, 2025 13:18
[2025-02-12] MEDS: MORPHINE SULFATE INJ 2 MG/ml SYRG IV PRN (14:45)
--- NOTE | 2025-02-12 15:35 | DVHPN2 ---
Progress Note - Dictate Date Seen: Feb 12, 2025 Medical Necessity Reason Pt with a Central, PICC or Fol: No Subjective Patient was seen and evaluated in follow up. Patient is on 4 LPM NC. Patient is complaining of generalized pain and SOB. Patient passed swallow eval. CO2 33, CA 8.4, TROP > 29701. The patients family is declining hospice and would like services. Telemetry reviewed. vital signs Vital Sign Date Time Temp Pulse Resp B/P (MAP) Pulse Ox O2 Delivery O2 Flow Rate FiO2 02/12/25 10:24 73 155/42 02/12/25 09:00 97.6 23 100 97.6 02/12/25 08:00 Nasal Cannula* 4 36 Total Intake and Output 02/11/25 02/11/25 02/12/25 15:00 23:00 07:00 Intake Total 0 ml Output Total 130 ml Balance -130 ml medications Current Medications Medications Dose Ordered Sig/Cindi Route Start Time Stop Time Status Last Admin Dose Admin Nitroglycerin 0.4 mg Q5MINP PRN SL 02/11/25 15:30 Morphine Sulfate 2 mg Q30M PRN IV 02/11/25 15:30 Atorvastatin Calcium 20 mg HS PO 02/11/25 22:00 Enoxaparin Sodium 40 mg Q12HR SC 02/11/25 22:00 02/11/25 21:44 40 MG Morphine Sulfate 2 mg Q4HPRN PRN IV 02/11/25 15:30 Clopidogrel Bisulfate 75 mg DAILY PO 02/12/25 10:00 02/12/25 09:24 75 MG Metoprolol Tartrate 12.5 mg BID PO 02/11/25 22:00 02/12/25 09:24 12.5 MG objective GENERAL: Altered, cachectic, ill appearing. LUNGS: Clear. CARDIOVASCULAR: Heart sounds are good. ABDOMEN: Soft. EXT: +2 pitting edema. laboratory and microbiology Laboratory Tests 02/12/25 07:02 Test 02/12/25 07:02 Range/Units Serum Glucose 116 H 74-106 mg/dL Problem List Non ST-elevation myocardial infarction. Osseous metastatic disease, ?primary source. Recent weight loss >20 lb in two months. Anemia in chronic disease. Hypertension. Cachexia. Assessment/Plan Continued all current supportive medical care. Echocardiogram. Lipitor, Plavix, Metoprolol. Nitro SL. DVT prophylactics. Morphine for pain management. Additional plan as per the hospital course. Plan discussed with: Patient LEYDA GAONA MD Feb 12, 2025 12:55
[2025-02-12 17:00] VITALS: BP 144/51; PULSE 67; RESP 18; TEMP 97.4; O2SAT 100
[2025-02-12 20:00] VITALS: PULSE 70
[2025-02-12 21:00] VITALS: BP 130/61; PULSE 68; RESP 17; TEMP 97.5; O2SAT 100
[2025-02-13 01:00] VITALS: BP 151/55; PULSE 68; RESP 17; TEMP 98.2; O2SAT 100
[2025-02-13] MEDS: MELATONIN 5 MG TAB PO ONE (01:32)
[2025-02-13 05:00] VITALS: BP 168/55; PULSE 69; RESP 17; TEMP 98.9; O2SAT 100
[2025-02-13] MEDS: hydrALAZINE HCL 20 MG/ML VL IV PRN (05:47)
[2025-02-13 08:10] VITALS: PULSE 92
[2025-02-13 08:37] VITALS: BP 96/41; PULSE 71; RESP 14; TEMP 97.5; O2SAT 100
--- NOTE | 2025-02-13 11:57 | DVHSR ---
APPROVED REPORT EXAM: Two-dimensional and M-mode echocardiogram with Doppler and color Doppler. Blood Pressure: 154/54 mmHg INDICATION NSTEMI RISK FACTORS Height: 5' , Weight: 90 DIMENSIONS LVDd3.9 (3.8-5.7cm)LA (2D)3.1 (1.9-4.0cm)Aortic Root3.0 (2.0-3.7cm) LVDs3.4 (2.5-4.0cm)LA (MM) (1.9-4.0cm)Aortic Cusp Exc1.4 (1.5-2.0cm) EF (%) 35.0 (55-70%)Rt. Atrium3.3 (1.9-4.0cm)Asc. Aorta cm IVSd1.3 (0.7-1.1cm)RV (D) (1.8-2.4cm) PWd1.0 (0.7-1.1cm) Mitral Valve MitralMitral Stenosis E wave0.70m/sMV Mean GR.mmHg A wave0.30m/sMV Peak GR.mmHg E/A ratio2.32D MVAcm2 Aortic Valve Aortic ValveAortic Stenosis V10.70m/Ros Mean GR.2mmHg V21.10m/Ros Peak GR.5mmHg LVOT Diameter1.7 (1.8-2.4cm)Doppler AVA1.44cm2 AI P 1/2 Irkw765.50ms Pulmonic Valve V20.60m/s Tricuspid Valve TR Velocity2.90m/s [id number] Conclusion Technically good study. Sinus rhythm. Concentric LVH. Left atrial enlargement. Mild mitral annular calcification at the base of the posterior mitral leaflet. Dilation of the sinus es of Valsalva. Left ventricular systolic performance is diminished. EF is approximately 25-30%. Impaired diastolic relaxation. Right ventricular function is preserved. Mild mitral insufficiency. Mild aortic insufficiency. Mild tricuspid regurgitation. Small pericardial effusion not hemodynamically significant. Large left pleural effusion. No intracardiac masses thrombi or vegetations discernible.
[2025-02-13 12:24] VITALS: BP 109/60; PULSE 77; RESP 14; TEMP 98.2; O2SAT 100
[2025-02-13] MEDS ORDERED: MET25T PO (14:10)
[2025-02-13] MEDS ORDERED: CLOP75TA70 PO (14:10)
--- NOTE | 2025-02-13 14:12 | DVHDS2 ---
Discharge Summary Date of Admission Feb 11, 2025 at 15:24 Date of Discharge: Feb 13, 2025 Labs/Diagnostic Data: Laboratory Results Test 02/12/25 23:26 02/12/25 07:02 02/11/25 13:18 POC Glucose 106 mg/dl (70-106) White Blood Count 3.5 10^3/uL (4.4-10.8) Red Blood Count 3.90 10^6/uL (4.0-5.20) Hemoglobin 10.9 g/dL (12.2-16.2) Hematocrit 32.8 % (36.0-46.0) Mean Corpuscular Volume 84.1 fL (80.0-100.0) Mean Corpuscular Hemoglobin 28.0 pg (28.0-32.0) Mean Corpuscular Hemoglobin Concent 33.3 g/dL (32.0-36.0) Red Cell Distribution Width 15.8 % (11.8-14.3) Platelet Count 279 10^3/uL (140-450) Mean Platelet Volume 8.0 fL (6.9-10.8) Neutrophils (%) (Auto) 72.1 % (37.0-80.0) Lymphocytes (%) (Auto) 14.3 % (10.0-50.0) Monocytes (%) (Auto) 12.6 % (0.0-12.0) Eosinophils (%) (Auto) 0.5 % (0.0-7.0) Basophils (%) (Auto) 0.5 % (0.0-2.0) Neutrophils # (Auto) 2.5 10 ^3/uL (1.6-8.6) Lymphocytes # (Auto) 0.5 10 ^3/uL (0.4-5.4) Monocytes # (Auto) 0.4 10 ^3/uL (0-1.3) Eosinophils # (Auto) 0 10 ^3/uL (0-0.8) Basophils # (Auto) 0 10 ^3/uL (0-0.2) Nucleated Red Blood Cells 0.0 % Prothrombin Time 11.4 sec (9.3-11.8) Prothrombin Time INR 1.08 (0.9-1.15) Activated Partial Thromboplast Time 36.4 SEC (24.5-34.5) Sodium Level 140 mmol/L (136-145) Potassium Level 3.6 mmol/L (3.5-5.1) Chloride Level 101 mmol/L (98-107) Carbon Dioxide Level 33 mmol/L (20-31) Anion Gap 6 (5-15) Blood Urea Nitrogen 20 mg/dL (9-23) Creatinine 0.83 mg/dL (0.550-1.02) Glomerular Filtration Rate Calc 73 mL/min (>90) BUN/Creatinine Ratio 24.1 (10.0-20.0) Serum Glucose 116 mg/dL (74-106) Calcium Level 8.4 mg/dL (8.7-10.4) Total Bilirubin 0.5 mg/dL (0.2-1.0) Aspartate Amino Transferase (AST) 189 U/L (13-40) Alanine Aminotransferase (ALT) 20 U/L (7-40) Alkaline Phosphatase 109 U/L (46-116) Troponin I High Sensitivity > 56021 ng/L (</=34) Total Protein 5.7 g/dL (5.7-8.2) Albumin 3.0 g/dL (3.2-4.8) Urine Color Light-orange (Yellow) Urine Clarity Clear (Clear) Urine pH 6.0 (5.0-9.0) Urine Specific [place] > 1.035 (1.001-1.035) Urine Protein 2+ (Negative) Urine Ketones Negative (Negative) Urine Blood 3+ /uL (Negative) Urine Nitrite Negative (Negative) Urine Bilirubin Negative (Negative) Urine Urobilinogen Normal mg/dL (Negative) Urine Leukocyte Esterase Negative /uL (Negative) Urine RBC 545 /hpf (0 - 4) Urine Microscopic WBC 105 /HPF (0-5) Urine Squamous Epithelial Cells Few /hpf (<5) Urine Bacteria None seen /hpf (None Seen) Urine Glucose Normal mg/dL (Normal) Other Laboratory Tests 02/12/25 07:02 Brief Hx & Hospital Course: This is a 74-year-old female transferred from [facility] to our facility in the setting of elevated troponin levels for nonemergent cardiac evaluation and possible coronary angiogram. At time of assessment the patient was found somewhat ALOC with son at bedside. Per records, the patient initially presented with complaints of some confusion associated with decreased appetite. Per son and daughter over the phone, the patient has lost approximately 20 lb, has lost some teeth, and has being found with some depression during the past couple of months. There were no complaints of chest pain, palpitations, shortness of breath, diaphoresis, or syncopal events. Twelve lead electrocardiograms from the aforementioned facility in our facility half revealed a sinus rhythm with nonspecific ST segment changes to inferolateral leads. Initial troponin level is >25,000 ng/L. However after she came here she was evaluated by nuclear powerplant mechanic and talked to DPOA her Son and daughter who declined patient undergoing any invasive cardiac procedures including PCIs. They wanted to keep her comfortable and treated with the medications if possible even if this causes further cardiac arrhythmia and sudden due to acute GA without any interventions. Therefore they have made her DNR with comfort care. Of note, CT chest/abdomen/pelvis from [facility] revealed numerous sclerotic lesions in the osseous structures of the chest/abdomen/pelvis consistent with metastatic disease, cardiomegaly with moderate pericardial effusion, and possible malted lymphadenopathy. Significant medical history includes hypertension, dyslipidemia, anemia, and recent history of tobacco use quit two months ago. She was monitored in the hospital. Patient's daughter and son who is at bedside with whom I had multiple conversations continue to decline any aggressive care interventions. Therefore prolonged discussions done with the to consider hospice given her overall poor prognosis with a significant myocardial infarction and cardiomyopathy as well as sclerotic lesions in the bones. They have also declined hospice and wanted to resume her home health services despite clearly understanding the risks involved without any aggressive interventions or care as recommended. I have told them that patient should continue her antiplatelet therapy and beta rupal and statin as she is on. They were also told for her to continue oxygen 24 hours a day. Per family request home health is resumed and being discharged home in poor/guarded condition. Patient's daughter and the son are aware of this. Consults/Reason for consult Subjective Patient was seen and evaluated in follow up. Patient is on 4 LPM NC. Patient is complaining of generalized pain and SOB. Patient passed swallow eval. CO2 33, CA 8.4, TROP > 33303. The patients family is declining hospice and would like services. Telemetry reviewed. Problem List Non ST-elevation myocardial infarction. Osseous metastatic disease, ?primary source. Recent weight loss >20 lb in two months. Anemia in chronic disease. Hypertension. Cachexia. Assessment/Plan Continued all current supportive medical care. Echocardiogram. Lipitor, Plavix, Metoprolol. Nitro SL. DVT prophylactics. Morphine for pain management. Additional plan as per the hospital course. Plan discussed with: Patient JIMENEZLEYDA Driver MD Feb 12, 2025 12:55 Operations or Procedures ORDER NUMBER(s): [id number], ACCESSION NUMBER(s): [id number] APPROVED REPORT EXAM: Two-dimensional and M-mode echocardiogram with Doppler and color Doppler. Blood Pressure: 154/54 mmHg INDICATION NSTEMI RISK FACTORS Height: 5' , Weight: 90 DIMENSIONS LVDd 3.9 (3.8-5.7cm) LA (2D) 3.1 (1.9-4.0cm) Aortic Root 3.0 (2.0- 3.7cm) LVDs 3.4 (2.5-4.0cm) LA (MM) (1.9-4.0cm) Aortic Cusp Exc 1.4 (1.5- 2.0cm) EF (%) 35.0 (55-70%) Rt. Atrium 3.3 (1.9-4.0cm) Asc. Aorta cm IVSd 1.3 (0.7-1.1cm) RV (D) (1.8-2.4cm) PWd 1.0 (0.7-1.1cm) Mitral Valve Mitral Mitral Stenosis E wave 0.70m/s MV Mean GR. mmHg A wave 0.30m/s MV Peak GR. mmHg E/A ratio 2.3 2D MVA cm2 Aortic Valve Aortic Valve Aortic Stenosis V1 0.70m/s AO Mean GR. 2mmHg V2 1.10m/s AO Peak GR. 5mmHg LVOT Diameter 1.7 (1.8-2.4cm) Doppler MERI 1.44cm2 AI P 1/2 Time 438.50ms Pulmonic Valve V2 0.60m/s Tricuspid Valve TR Velocity 2.90m/s RVSP 40mmHg Conclusion Technically good study. Sinus rhythm. Concentric LVH. Left atrial enlargement. Mild mitral annular calcification at the base of the posterior mitral leaflet. Dilation of the sinuses of Valsalva. Left ventricular systolic performance is diminished. EF is approximately 25- 30%. Impaired diastolic relaxation. Right ventricular function is preserved. Mild mitral insufficiency. Mild aortic insufficiency. Mild tricuspid regurgitation. Small pericardial effusion not hemodynamically significant. Large left pleural effusion. No intracardiac masses thrombi or vegetations discernible. SIGNED BY: IRINEO MARK Sr., MD SIGNED DATE/TIME: 02/13/25 7460 Condition at Discharge: Poor Final Diagnosis/Problems List non stemi, cad Discharge Disposition: Home with Health Services Discharge Instruct/Medications Diet: Consistent carbohydrate, Cardiac 2g Na,low cholest Activity: No Restrictions, As Tolerated Follow Up/Referral: PCP next week and cardiology 2 weeks Medications: as prescribed per discharge med list/home list New Medications: Clopidogrel Bisulfate (Clopidogrel) 75 Mg Tab 75 MG PO DAILY, #30 TAB Metoprolol Tartrate (Lopressor) 25 Mg Tb 12.5 MG PO BID, #60 TAB Continued Medications: Atorvastatin Calcium (Atorvastatin Calcium) 20 Mg Tab 1 TAB PO DAILY, #30 TAB 5 Refills Discontinued Medications: Aspirin (Aspir-Low) 81 Mg Tab 81 MG PO DAILY for 30 Days, MG Levofloxacin Hemihydrate (Levofloxacin) 250 Mg Tab 250 MG PO DAILY, MG Metoprolol Tartrate (Metoprolol Tartrate) 25 Mg Tab 25 MG PO BID for 30 Days, MG Discharge Statement: "Patient was advised to return to the ER or call 911 if any headaches, dizziness, shortness of breath, chest pain, abdominal pain, bleeding, fevers, or worsening of medical condition. Patient was counseled about treatment plan, medications, possible side effects, patientverbalized understanding. All questions were answered to the best of my ability. This discharge took greater then 30 minutes in planning, reviewing documentation, counseling the patient, and discussing with other team members." ASSESSMENT ASSESSMENT Assessment non stemi, cad JORGE RODRÍGUEZ MD Feb 13, 2025 14:12
[2025-02-13 16:22] VITALS: BP 148/64; PULSE 82; RESP 14; TEMP 97.8; O2SAT 100
--- NOTE | 2025-02-13 18:17 | DVHPN2 ---
Progress Note - Dictate Date Seen: Feb 13, 2025 Medical Necessity Reason Pt with a Central, PICC or Fol: No Subjective Patient was seen and evaluated in follow up. Patient is on 3 LPM NC. Patient is complaining of SOB. Patient's son was at bedside this morning. Patient is being arranged for discharge with . Telemetry reviewed. vital signs Vital Sign Date Time Temp Pulse Resp B/P (MAP) Pulse Ox O2 Delivery O2 Flow Rate FiO2 02/13/25 08:37 97.5 71 14 96/41 (59) 100 97.5 02/13/25 08:10 Nasal Cannula* 3 32 Total Intake and Output 02/12/25 02/12/25 02/13/25 15:00 23:00 07:00 Intake Total 500 ml 1300 ml Output Total 800 ml 100 ml Balance -300 ml 1200 ml medications Current Medications Medications Dose Ordered Sig/Cindi Route Start Time Stop Time Status Last Admin Dose Admin Nitroglycerin 0.4 mg Q5MINP PRN SL 02/11/25 15:30 Morphine Sulfate 2 mg Q30M PRN IV 02/11/25 15:30 Atorvastatin Calcium 20 mg HS PO 02/11/25 22:00 02/12/25 22:07 20 MG Enoxaparin Sodium 40 mg Q12HR SC 02/11/25 22:00 02/13/25 09:19 40 MG Morphine Sulfate 2 mg Q4HPRN PRN IV 02/11/25 15:30 02/12/25 14:45 2 MG Clopidogrel Bisulfate 75 mg DAILY PO 02/12/25 10:00 02/13/25 09:18 75 MG Metoprolol Tartrate 12.5 mg BID PO 02/11/25 22:00 02/12/25 22:08 12.5 MG Hydralazine HCl 10 mg Q6HP PRN IV 02/13/25 05:30 02/13/25 05:47 10 MG objective GENERAL: Altered, cachectic, ill appearing. LUNGS: Clear. CARDIOVASCULAR: Heart sounds are good. ABDOMEN: Soft. EXT: +2 pitting edema. laboratory and microbiology Laboratory Tests 02/12/25 07:02 Test 02/12/25 07:02 Range/Units Serum Glucose 116 H 74-106 mg/dL Problem List Non ST-elevation myocardial infarction. Osseous metastatic disease, ?primary source. Recent weight loss >20 lb in two months. Anemia in chronic disease. Hypertension. Cachexia. Assessment/Plan Continued all current supportive medical care. Echocardiogram. Lipitor, Plavix, Metoprolol. Nitro SL. DVT prophylactics. Morphine for pain management. Additional plan as per the hospital course. Plan discussed with: Patient LEYDA GAONA MD Feb 13, 2025 12:16
== END 2025-02-13 20:45 | disposition home or self-care (01) | DRG 280 ==
LOC: EDBD 11:27 → ER 11:27 → OVERFLOW 15:24 → TELE-WESTW 20:07
PROVIDERS: ADMIT Hospitalist; ATTEND Hospitalist
DX: I21.4 Non-ST elevation (NSTEMI) myocardial infarction (principal); E43 Unspecified severe protein-calorie malnutrition; G93.41 Metabolic encephalopathy; R64 Cachexia; J90 Pleural effusion, not elsewhere classified; Z68.1 Body mass index [BMI] 19.9 or less, adult; I31.39 Other pericardial effusion (noninflammatory); C79.51 Secondary malignant neoplasm of bone; D63.8 Anemia in other chronic diseases classified elsewhere; R62.7 Adult failure to thrive; F32.A Depression, unspecified; I25.10 Atherosclerotic heart disease of native coronary artery without angina pectoris; E78.5 Hyperlipidemia, unspecified; D64.9 Anemia, unspecified; Z88.6 Allergy status to analgesic agent; Z88.0 Allergy status to penicillin; Z79.899 Other long term (current) drug therapy; Z51.5 Encounter for palliative care; Z82.49 Family history of ischemic heart disease and other diseases of the circulatory system; Z87.891 Personal history of nicotine dependence
CPT/HCPCS: 36415; 71045; 80048; 80053; 81001; 82962; 84484; 85025; 85610; 85730; 87081; 87086; 92610; 93005; 93306; 96361; 96365; 96372; 99291; 99292; G0378; J2250; J3490; J7060

== ENCOUNTER 2025-02-14 16:09 | Emergency (ER) | payer OTHER ==
[~2025-02-14] VITALS: Ht 160 cm; Wt 44.5 kg
[~2025-02-14 16:09] MED LIST: ATOR20TA50 PO; CLOP75TA70 PO; MET25T PO
--- NOTE | 2025-02-14 16:26 | ED.PDOC ---
History of Present Illness HPI Comments 74-year-old female with unknown PMHx brought in by EMS presents with a chief complaint of dressing change request and ALOC. Per EMS, family states that patient was just discharged from this facility yesterday after being here for 2 days due to an NSTEMI. Patient is unable to disclose what she is feeling and just states "I want to go home". Per EMS, family of patient called EMS due to patients IV site dressing was saturated and "bleeding". EMS denies any active bleeding to dressing site. Per EMS, family and patient are both poor historians. Patients family reports that she wears 0.5L of oxygen at home "because the doctors said so". Patient was sating at 88% on room air and was placed on 2L/NC by EMS and is now at 98%. Patient is A/Ox3 at this time and per EMS, family states that is her baseline. Time Seen by MD: 16:10 Reviewed Notes: Nurses Notes, Medications, Allergies Allergies: Coded Allergies: Aspirin (Verified Allergy, Unknown, 02/11/25) Penicillins (Verified Allergy, Unknown, 02/11/25) Home Meds Active Scripts Metoprolol Tartrate (Lopressor) 25 Mg Tb, 12.5 MG PO BID, #60 TAB Prov:JORGE RODRÍGUEZ MD 02/13/25 Clopidogrel Bisulfate (CLOPIDOGREL) 75 Mg Tab, 75 MG PO DAILY, #30 TAB Prov:JORGE RODRÍGUEZ MD 02/13/25 Reported Medications Atorvastatin Calcium (ATORVASTATIN CALCIUM) 20 Mg Tab, 1 TAB PO DAILY, #30 TAB 5 Refills 02/12/25 Discontinued Reported Medications Aspirin (Aspir-Low) 81 Mg Tab, 81 MG PO DAILY for 30 Days, MG 02/12/25 Metoprolol Tartrate (Metoprolol Tartrate) 25 Mg Tab, 25 MG PO BID for 30 Days, MG 02/12/25 Levofloxacin Hemihydrate (LEVOFLOXACIN) 250 Mg Tab, 250 MG PO DAILY, MG 02/12/25 Information Source: Emergency Med Personnel Mode of Arrival: EMS Severity: Moderate Timing: Hours Duration: Since onset Prehospital treatment: Oxygen Past Medical History PAST MEDICAL HISTORY: HTN Past Medical History (Other): NSTEMI Surgical History: Unknown [employer] [place] History: Unknown Family History Family History: Unknown Social History Smoker: Unknown Alcohol: Unknown Drugs: Unknown Lives In: Home Constitutional: reports: weakness; denies: chills, diaphoresis, fatigue, fever, malaise, sweats, others EENTM: denies: blurred vision, double vision, ear bleeding, ear discharge, ear drainage, ear pain, ear ringing, eye pain, eye redness, hearing loss, mouth pain, mouth swelling, nasal discharge, nose bleeding, nose congestion, nose pain, photophobia, tearing, throat pain, throat swelling, voice changes, others Respiratory: denies: cough, hemoptysis, orthopnea, SOB at rest, shortness of breath, SOB with excertion, stridor, wheezing, others Cardiovascular: denies: chest pain, dizzy spells, diaphoresis, Dyspnea on exertion, edema, irregular heart beat, left arm pain, lightheadedness, palpitations, PND, syncope, others Gastrointestinal: denies: abdomen distended, abdominal pain, blood streaked bowels, constipated, diarrhea, dysphagia, difficulty swallowing, hematemesis, melena, nausea, poor appetite, poor fluid intake, rectal bleeding, rectal pain, vomiting, others Genitourinary: denies: abnormal vagina bleeding, burning, dyspareunia, dysuria, flank pain, frequency, hematuria, incontinence, pain, , vagina discharge, urgency, others Neurological: denies: dizziness, fainting, headache, left sided numbness, left sided weakness, numbness, paresthesia, pre-existing deficit, right sided numbness, right sided weakness, seizure, speech problems, tingling, tremors, weakness, others Musculoskeletal: denies: back pain, gout, joint pain, joint swelling, muscle pain, muscle stiffness, neck pain, others Integumetry: denies: bruises, change in color, change in hair/nails, dryness, laceration, lesions, lumps, rash, wounds, others Allergic/Immunocompromised: denies: Difficulty Healing, Frequent Infections, Hives, Itching, others Hematologic/Lymphatic: denies: anemia, blood clots, easy bleeding, easy bruising, swollen glands, others Endocrine: denies: excessive hunger, excessive sweating, excessive thirst, excessive urination, flushing, intolerance to cold, intolerance to heat, unexplained weight gain, unexplained weight loss, others Psychiatric: denies: anxiety, bipolar disorder, depression, hopeless, panic disorder, schizophrenia, sleepless, suicidal, others All Other Systems: Reviewed and Negative Physical Exam General Appearance: No Apparent Distress HEENT: Normal ENT Inspection, Pharynx Normal, TMs Normal Neck: Full Range of Motion, Non-Tender, Normal, Normal Inspection Respiratory: Chest Non-Tender, Lungs Clear, No Accessory Muscle Use, No Respiratory Distress, Normal Breath Sounds Cardiovascular: No Edema, No JVD, No Murmur, No Gallop, Normal Peripheral Pulses, Regular Rate/Rhythm Breast Exam: Deferred Gastrointestinal: No Organomegaly, Non Tender, No Pulsatile Mass, Normal Bowel Sounds, Soft Genitalia: Deferred Pelvic: Deferred Rectal: Deferred Extremities: No calf tenderness, Normal capillary refill, No pedal edema, Other (The right groin had some bleeding to the site area) Musculoskeletal : Apperance: Normal Neurologic: Alert, emblem cutter II-XII nml as Tested, No Motor Deficits, Normal Affect, Normal Mood, No Sensory Deficits Cerebellar Function: Normal Reflexes: Normal Skin: Dry, Normal Color, Warm Lymphatic: No Adenopathy Was a procedure done? Was a procedure done?: No Differential Dx Considerations may include: Wound check X-Ray, Labs, Meds, VS Vital Signs Date Time Temp Pulse Resp B/P (MAP) Pulse Ox O2 Delivery O2 Flow Rate FiO2 02/14/25 16:17 97.8 87 16 174/84 (114) 98 97.8 Lab Test 02/14/25 16:38 Range/Units White Blood Count 4.5 # 4.4-10.8 10^3/uL Red Blood Count 4.09 4.0-5.20 10^6/uL Hemoglobin 11.2 L 12.2-16.2 g/dL Hematocrit 34.6 L 36.0-46.0 % Mean Corpuscular Volume 84.6 80.0-100.0 fL Mean Corpuscular Hemoglobin 27.4 L 28.0-32.0 pg Mean Corpuscular Hemoglobin Concent 32.4 32.0-36.0 g/dL Red Cell Distribution Width 16.4 H 11.8-14.3 % Platelet Count 341 140-450 10^3/uL Mean Platelet Volume 7.6 6.9-10.8 fL Neutrophils (%) (Auto) 85.9 H 37.0-80.0 % Lymphocytes (%) (Auto) 7.7 L 10.0-50.0 % Monocytes (%) (Auto) 5.5 0.0-12.0 % Eosinophils (%) (Auto) 0.5 0.0-7.0 % Basophils (%) (Auto) 0.4 0.0-2.0 % Neutrophils # (Auto) 3.9 1.6-8.6 10 ^3/uL Lymphocytes # (Auto) 0.4 0.4-5.4 10 ^3/uL Monocytes # (Auto) 0.3 0-1.3 10 ^3/uL Eosinophils # (Auto) 0 0-0.8 10 ^3/uL Basophils # (Auto) 0 0-0.2 10 ^3/uL Nucleated Red Blood Cells 0.0 % Sodium Level 140 136-145 mmol/L Potassium Level 4.2 3.5-5.1 mmol/L Chloride Level 100 98-107 mmol/L Carbon Dioxide Level 30 20-31 mmol/L Anion Gap 10 5-15 Blood Urea Nitrogen 17 9-23 mg/dL Creatinine 0.86 0.550-1.02 mg/dL Glomerular Filtration Rate Calc 70 >90 mL/min BUN/Creatinine Ratio 19.8 10.0-20.0 Serum Glucose 117 H 74-106 mg/dL Calcium Level 8.4 L 8.7-10.4 mg/dL Troponin I High Sensitivity > 95565 *H </=34 ng/L The dressing was changed on the right groin and now there is no bleeding seen The patient's CBC and chemistry panel are within normal limits At this time, the patient was being discharged we did speak with the family about the patient's elevated troponin level but that has been elevated from the last day and they do not want anything done at this time The patient was being discharged Time of 1ST Reevaluation: 16:40 Reevaluation 1ST: Unchanged Patient Education/Counseling: Diagnosis, Treatment, Prognosis, Need For Follow Up Family Education/Counseling: Diagnosis, Treatment, Prognosis, Need For Follow Up Departure 1 Departure Time of Disposition: 17:27 Impression: Primary Impression: Visit for wound check Disposition: 01 HOME / SELF CARE / HOMELESS Condition: Fair Discharged With: Self, Relative Critical Care Note Critical Care Time?: No Stability Stability form required: No Heart Score Heart Score: Heart Score Response (Comments) Value History N/A 0 EKG N/A 0 Age N/A 0 Risk Factors N/A 0 Troponin N/A 0 Total 0 I personally scribed for ZHANNA RACHEL MD ([email or web address]) on 02/14/25 at 16:26. Electronically submitted by Farooq Lincoln ([email or web address]). ZHANNA RACHEL MD Feb 14, 2025 16:26
[2025-02-14 16:45] LABS: Basophils # (auto) 0 10 ^3/uL (0-0.2); Basophils % (auto) 0.4 % (0.0-2.0); Eosinophils # (auto) 0 10 ^3/uL (0-0.8); Eosinophils % (auto) 0.5 % (0.0-7.0); Hematocrit 34.6 % (36.0-46.0); Hemoglobin 11.2 g/dL (12.2-16.2); Lymphocytes # (auto) 0.4 10 ^3/uL (0.4-5.4); Lymphocytes % (auto) 7.7 % (10.0-50.0); Mean Corpuscular Hemoglobin 27.4 pg (28.0-32.0); Mean Corpuscular Hgb Conc. 32.4 g/dL (32.0-36.0); Mean Corpuscular Volume 84.6 fL (80.0-100.0); Monocytes # (auto) 0.3 10 ^3/uL (0-1.3); Monocytes % (auto) 5.5 % (0.0-12.0); Neutrophils # (auto) 3.9 10 ^3/uL (1.6-8.6); Neutrophils % (auto) 85.9 % (37.0-80.0); Platelet Count (auto) 341 10^3/uL (140-450); Red Blood Cells 4.09 10^6/uL (4.0-5.20); Red Cell Distribution Width 16.4 % (11.8-14.3); White Blood Cell 4.5 10^3/uL (4.4-10.8)
[2025-02-14 16:53] LABS: Chloride 100 mmol/L (98-107); Potassium 4.2 mmol/L (3.5-5.1); Sodium 140 mmol/L (136-145)
[2025-02-14 16:54] LABS: Anion Gap 10 (5-15); Carbon Dioxide 30 mmol/L (20-31)
[2025-02-14 16:57] LABS: Calcium 8.4 mg/dL (8.7-10.4)
[2025-02-14 16:59] LABS: BUN/Creatinine Ratio 19.8 (10.0-20.0); Blood Urea Nitrogen 17 mg/dL (9-23); Glucose 117 mg/dL (74-106)
[2025-02-14 18:53] VITALS: PULSE 73; RESP 15; O2SAT 98
[2025-02-14 19:52] VITALS: PULSE 75; RESP 20; O2SAT 99
[2025-02-15 07:30] VITALS: PULSE 83; RESP 18; O2SAT 95
[2025-02-15 08:00] VITALS: TEMP 97.7
[2025-02-15 10:45] VITALS: BP 154/57; PULSE 80; RESP 22; O2SAT 99
== END 2025-02-15 11:04 | disposition home or self-care (01) ==
LOC: ER 16:09 → EDBD 16:09 → ER 02-15 11:04
DX: Z48.00 Encounter for change or removal of nonsurgical wound dressing (principal); I10 Essential (primary) hypertension; I21.4 Non-ST elevation (NSTEMI) myocardial infarction; Z79.02 Long term (current) use of antithrombotics/antiplatelets; Z79.82 Long term (current) use of aspirin; Z79.899 Other long term (current) drug therapy; Z88.0 Allergy status to penicillin; Z88.6 Allergy status to analgesic agent
CPT/HCPCS: 36415; 80048; 84484; 85025